=== PATIENT | female | born 1940 | race Caucasian/White ===

== ENCOUNTER → 2017-06-17 | Outpatient (CLI) | payer OTHER ==
--- NOTE | 2017-06-17 16:00 | MRI ---
HISTORY: LEFT SHOULDER JOINT PAIN AND ROTATOR CUFF TEAR. EXAM: NON CONTRAST MRI EXAM OF THE LEFT SHOULDER JOINT. TECHNIQUE: Multisequence and multiplanar T1 and T2 weighted sequences of the left shoulder joint were obtained without the administration of IV paramagnetic contrast at 1.5 Hedy. COMPARISON: No recent comparisons. FINDINGS: The patient is status post presumed prior rotator cuff repair/surgery with resection of the distal cl avicle. There is undersurface, distal, fraying of the otherwise intact subscapularis. There is a full -thickness tear of the supraspinatus with proximal retraction to the undersurface acromial level. The re is a low grade articular undersurface tear of the otherwise intact anterior infraspinatus. The inf raspinatus is markedly atretic. There is moderate atrophic changes seen with the supraspinatus and in fraspinatus mid bellies. No other rotator cuff tear seen. And intra-articular biceps tendon is not vi sualized which probably reflects a longstanding, chronic, and high-grade intra-articular biceps tendo n tear versus prior tenodesis. Please correlate with surgical history. 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 There is a degenerative tear of the superior labrum which is nondisplaced. There is f luid seen along the undersurface of the acromion with marked narrowing of the subacromial interval se condary to the rotator cuff tear. No acute fracture or pathologic bone marrow edema is seen. There is a small shoulder joint effusion appreciated. No other shoulder joint injuries are abnormalities are identified. IMPRESSION: 1. Full-thickness tear and retraction of the supraspinatus, as above. 2. Low grade anterior footprint infraspinatus undersurface tear seen. 3. Moderate atrophic changes of the infraspinatus and supraspinatus. 4. Distal fraying of the otherwise intact subscapularis observed. 5. High-grade, chronic, biceps tendon tear versus prior tenodesis. 6. Degenerative appearing superior labral tear without cyst formation. 7. 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 8. Status post prior rotator cuff repair/shoulder surgery/clavicular resection. 9. Fluid along the undersurface of the acromion near the supraspinatus tear. 10. No acute fracture, pathologic bone marrow edema, or other injury seen. Reported By:
== END | disposition home or self-care (01) | DRG 556 ==
LOC: RAD 14:26
PROVIDERS: ATTEND Specialist
DX: M25.512 Pain in left shoulder (principal); M75.102 Unspecified rotator cuff tear or rupture of left shoulder, not specified as traumatic; S46.212A Strain of muscle, fascia and tendon of other parts of biceps, left arm, initial encounter; S43.492A Other sprain of left shoulder joint, initial encounter; M94.212 Chondromalacia, left shoulder
CPT/HCPCS: 73221